=== PATIENT | male | born 2000 | race African-American/Black ===

== ENCOUNTER 2021-12-08 18:48 | Emergency (ER) | payer OTHER ==
[~2021-12-08] VITALS: Ht 177.8 cm; Wt 82.0 kg
[2021-12-08] MEDS ORDERED: ACETAMINOPHEN 325MG TABLET PO ONE (20:15)
[2021-12-08] MEDS ORDERED: IBUPROFEN 400MG TABLET PO ONE (20:15)
[2021-12-08] MEDS ORDERED: AMOXICILLIN/POTASSIUM CLAVULANATE 875/125MG TAB PO ONE (20:15)
[2021-12-08 20:16] VITALS: BP 129/73
[2021-12-08] MEDS ORDERED: TETANUS, DIPHTHERIA, PERTUSSIS VAC/PF 0.5ML (>10YR OLD) IM ONE (21:00)
[2021-12-08] MEDS ORDERED: AMOX-424 MT (23:12)
== END 2021-12-08 23:24 ==
LOC: ER 18:48
DX: S81.052A Open bite, left knee, initial encounter (principal); W54.0XXA Bitten by dog, initial encounter; Y35.893A Legal intervention involving other specified means, suspect injured, initial encounter; Y93.89 Activity, other specified; Y92.488 Other paved roadways as the place of occurrence of the external cause
CPT/HCPCS: 73564; 90471; 90715; 99284